=== PATIENT | male | born 1945 ===

== ENCOUNTER 2019-02-09 18:21 | Inpatient (IN) ==
[2019-02-09] MEDS ORDERED: ENOXAPARIN 100 MG/ML SYRINGE SUBCUT STA (18:36)
[2019-02-09] MEDS ORDERED: ASPIRIN 325 MG TABLET PO STA (18:36)
[2019-02-09] MEDS ORDERED: ONDANSETRON 4 MG/2 ML VIAL IV STA ×2 (18:36→19:27)
[2019-02-09] MEDS ORDERED: ONDANSETRON 4 MG/2 ML VIAL ONE (18:36)
[2019-02-09] MEDS ORDERED: ASPIRIN 300 MG SUPP RECTAL ONE (18:37)
[2019-02-09] MEDS ORDERED: EPTIFIBATIDE 20,000 MCG/10 ML VIAL IV STA (18:37)
[2019-02-09] MEDS ORDERED: HEPARIN 1,000 UNIT/1 ML VIAL IV STA (18:48)
[2019-02-09 18:50] LABS: Basophils % 0.5 % (0.0-0.8); Eosinophils # 0.1 10*3/uL (0.0-0.87); Eosinophils % 0.8 % (0.00-10.9); Hematocrit 48.9 VOL% (42.0-52.0); Immature Granulocytes % 0.1 %; Immature Granulocytes Absolute 0.01 #; Lymphocytes # 6.1 10*3/uL (1.4-4.0); Lymphocytes % 73.4 % (21.2-54.2); Mean Corpuscular HGB Conc 32.7 GM/DL (32-36); Mean Corpuscular Hemoglobin 30 PG (27-34); Mean Corpuscular Volume 92.8 FL (87-102); Monocytes # 0.6 10*3/uL (0.11-0.8); Monocytes % 6.7 % (1.7-12.7); Neutrophils # 1.5 10*3/uL (1.4-7.4); Neutrophils % 18.5 % (38.7-73.9); Platelet Count 221 T/CUMM (130-400); Red Blood Count 5.27 MC/CUMM (3.8-5.5); Red Cell Distribution Width 14.6 % (9.3-17.3); White Blood Count 8.2 T/CUMM (4-12)
[2019-02-09] MEDS ORDERED: ASPIRIN 300 MG SUPP RECTAL STA (18:56)
[2019-02-09 18:59] LABS: PT Patient Result 10.8 SECS
[2019-02-09] MEDS ORDERED: EPTIFIBATIDE 75 MG/100 ML BOTTLE IV SCH (19:00)
[2019-02-09] MEDS ORDERED: LIDOCAINE 1% 20 ML VIAL ONE (19:00)
[2019-02-09] MEDS ORDERED: fentaNYL 100 MCG/2 ML VIAL ONE (19:02)
[2019-02-09] MEDS ORDERED: MIDAZOLAM 2 MG/2 ML VIAL ONE (19:02)
[2019-02-09] MEDS ORDERED: TIROFIBAN 5,000 MCG/100 ML PREMIX IV ONE (19:07)
[2019-02-09 19:23] LABS: Albumin 3.6 G/DL (3.4-5.0); Bilirubin,Total 0.4 MG/DL (0.2-1.0); Calcium 8.9 MG/DL (8.5-10.1); Osmolality,Calculated 282.3 MOS/KG (273-304); Potassium 3.7 MMOL/L (3.5-5.1); Total Protein 7.7 G/DL (6.4-8.3)
[2019-02-09] MEDS ORDERED: HEPARIN 5,000 UNIT/1 ML VIAL ONE (19:31)
[2019-02-09] MEDS ORDERED: TICAGRELOR 90 MG TABLET ONE (20:02)
[2019-02-09] MEDS ORDERED: ASPIRIN 325 MG TABLET ONE (20:03)
[2019-02-09 20:06] LABS: Lymphocytes 80 % (20-55); Reactive Lymphocytes 1+; Segmented Neutrophils 12 % (50-85); Total Cells Counted 100
[2019-02-09 20:07] LABS: Macrocytosis Slight; Platelet Estimate Adequate
[2019-02-09] MEDS ORDERED: TIROFIBAN 5,000 MCG/100 ML PREMIX IV SCH (20:30)
[2019-02-09] MEDS ORDERED: ACETAMINOPHEN 325 MG TABLET PO PRN (20:44)
[2019-02-09] MEDS ORDERED: MAGNESIUM SULF RIDER 2 GM in PREMIX 1 EACH IV PRN (20:44)
[2019-02-09] MEDS ORDERED: fentaNYL 100 MCG/2 ML VIAL IV PRN (20:44)
[2019-02-09] MEDS ORDERED: ZALEPLON 5 MG CAPSULE PO PRN (20:44)
[2019-02-09] MEDS ORDERED: ONDANSETRON 4 MG/2 ML VIAL IV PRN (20:44)
[2019-02-09] MEDS ORDERED: MAGNESIUM SULF RIDER 4 GM in PREMIX 1 EACH IV PRN (20:44)
[2019-02-09] MEDS ORDERED: GLUCAGON 1 MG VIAL IM PRN (21:05)
[2019-02-09] MEDS ORDERED: DEXTROSE 50% 25 GM/50 ML SYRINGE IV PRN (21:05)
[2019-02-09] MEDS: SODIUM CHLORIDE 0.9% 1,000 ML IV SCH (21:15)
[2019-02-09 21:41] LABS: HIV Antigen/Antibody Result Nonreactive (Nonreactive)
[2019-02-09 21:45] LABS: Risk Ratio 2.93; Troponin I 0.092 NG/ML (0.00-0.045)
[2019-02-09 21:49] LABS: Hepatitis B Surface Ag Quant < 0.10 Index; Hepatitis B Surface Ag Result Negative (Negative); Hepatitis C Virus Ab Quant < 0.02 Index; Hepatitis C Virus Ab Result Negative (Negative)
[2019-02-09 22:13] LABS: Apearance,Urine CLEAR (Clear); Bilirubin,Urine Negative (Negative); Blood, Urine Negative (Negative); Glucose,Urine (UA) Negative (Negative); Ketones,Urine Negative (Negative); Mucus,Urine Occasional /LPF (Occasional); Nitrite,Urine Negative (Negative); Protein,Urine Negative; RBC,Urine 1 /HPF (0-4); Squamous Epithelial Cell,Urine Occasional /HPF (0-10); Urine Color Yellow (Yellow); Urine Specific Gravity 1.017 (1.001-1.035); Urine Urobilinogen < 2.0 EU/DL (0.2-1.0); WBC,Urine 1 /HPF (0-6)
[2019-02-09] MEDS: CARVEDILOL 3.125 MG TABLET PO SCH (23:02)
[2019-02-09] MEDS: GABAPENTIN 100 MG CAPSULE PO SCH (23:04)
[2019-02-09] MEDS: ACETAMINOPHEN 325 MG TABLET PO SCH (23:04)
[2019-02-09] MEDS: ROSUVASTATIN 10 MG TABLET PO SCH (23:05)
[2019-02-10] MEDS: TICAGRELOR 90 MG TABLET PO SCH ×3 (02:15→21:18)
[2019-02-10] MEDS: SODIUM CHLORIDE 0.9% 1,000 ML IV SCH (02:30)
[2019-02-10] MEDS: CARVEDILOL 3.125 MG TABLET PO SCH ×4 (04:30→21:17)
[2019-02-10 05:09] LABS: Basophils % 0.2 % (0.0-0.8); Eosinophils % 0.2 % (0.00-10.9); Hematocrit 41.3 VOL% (42.0-52.0); Hemoglobin 13.7 GM/DL (14.0-18.0); Immature Granulocytes % 0.3 %; Immature Granulocytes Absolute 0.03 #; Lymphocytes # 2.8 10*3/uL (1.4-4.0); Lymphocytes % 30.5 % (21.2-54.2); Mean Corpuscular HGB Conc 33.2 GM/DL (32-36); Mean Corpuscular Hemoglobin 30 PG (27-34); Mean Corpuscular Volume 91.8 FL (87-102); Mean Platelet Volume 10.8 FL (9.6-12.0); Monocytes # 0.7 10*3/uL (0.11-0.8); Neutrophils # 5.6 10*3/uL (1.4-7.4); Neutrophils % 60.8 % (38.7-73.9); Platelet Count 179 T/CUMM (130-400); Red Cell Distribution Width 14.7 % (9.3-17.3); White Blood Count 9.2 T/CUMM (4-12)
[2019-02-10 05:40] LABS: Albumin 2.9 G/DL (3.4-5.0); Bilirubin,Total 1.6 MG/DL (0.2-1.0); Osmolality,Calculated 283.1 MOS/KG (273-304); Potassium 4.1 MMOL/L (3.5-5.1)
[2019-02-10 05:52] LABS: Troponin I 31.6 NG/ML (0.00-0.045)
[2019-02-10] MEDS: INSULIN REGULAR 100 UNIT/ML SUBCUT SCH ×4 (07:57→21:27)
[2019-02-10] MEDS: ACETAMINOPHEN 325 MG TABLET PO SCH ×2 (08:20→21:18)
[2019-02-10] MEDS: GABAPENTIN 100 MG CAPSULE PO SCH ×3 (08:20→21:17)
[2019-02-10] MEDS: PANTOPRAZOLE 40 MG TABLET PO SCH (11:43)
[2019-02-10 14:19] LABS: Troponin I 15.3 NG/ML (0.00-0.045)
[2019-02-10] MEDS: TAMSULOSIN 0.4 MG CAPSULE PO SCH (17:03)
[2019-02-10] MEDS: traZODone 50 MG TABLET PO SCH (21:17)
[2019-02-10] MEDS: metFORMIN 500 MG TABLET PO SCH (21:18)
[2019-02-10] MEDS: ROSUVASTATIN 10 MG TABLET PO SCH (21:19)
[2019-02-11] MEDS: CARVEDILOL 3.125 MG TABLET PO SCH ×4 (04:09→20:59)
[2019-02-11 05:08] LABS: Basophils % 0.3 % (0.0-0.8); Eosinophils # 0.1 10*3/uL (0.0-0.87); Eosinophils % 0.7 % (0.00-10.9); Hematocrit 40.5 VOL% (42.0-52.0); Hemoglobin 13.4 GM/DL (14.0-18.0); Immature Granulocytes % 0.3 %; Immature Granulocytes Absolute 0.02 #; Lymphocytes # 3.2 10*3/uL (1.4-4.0); Lymphocytes % 42.1 % (21.2-54.2); Mean Corpuscular HGB Conc 33.1 GM/DL (32-36); Mean Corpuscular Hemoglobin 31 PG (27-34); Mean Corpuscular Volume 92.3 FL (87-102); Mean Platelet Volume 10.7 FL (9.6-12.0); Monocytes # 0.6 10*3/uL (0.11-0.8); Monocytes % 8.3 % (1.7-12.7); Neutrophils # 3.7 10*3/uL (1.4-7.4); Neutrophils % 48.3 % (38.7-73.9); Platelet Count 171 T/CUMM (130-400); Red Blood Count 4.39 MC/CUMM (3.8-5.5); Red Cell Distribution Width 14.9 % (9.3-17.3); White Blood Count 7.6 T/CUMM (4-12)
[2019-02-11 05:31] LABS: Albumin 2.8 G/DL (3.4-5.0); Bilirubin,Total 0.8 MG/DL (0.2-1.0); Calcium 8.2 MG/DL (8.5-10.1); Osmolality,Calculated 278.4 MOS/KG (273-304); Potassium 4.2 MMOL/L (3.5-5.1); Total Protein 6.2 G/DL (6.4-8.3)
[2019-02-11] MEDS: INSULIN REGULAR 100 UNIT/ML SUBCUT SCH ×4 (08:35→21:00)
[2019-02-11] MEDS: TICAGRELOR 90 MG TABLET PO SCH ×2 (08:54→21:00)
[2019-02-11] MEDS: FLUoxetine 20 MG CAPSULE PO SCH (08:54)
[2019-02-11] MEDS: GABAPENTIN 100 MG CAPSULE PO SCH ×3 (08:55→21:00)
[2019-02-11] MEDS: ACETAMINOPHEN 325 MG TABLET PO SCH ×2 (08:55→20:59)
[2019-02-11] MEDS: metFORMIN 500 MG TABLET PO SCH ×2 (08:55→20:59)
[2019-02-11] MEDS: CETIRIZINE 10 MG TABLET PO SCH (08:55)
[2019-02-11] MEDS: PANTOPRAZOLE 40 MG TABLET PO SCH (08:55)
[2019-02-11] MEDS: ASPIRIN CHEW 81 MG TABLET PO SCH (15:27)
[2019-02-11] MEDS: TAMSULOSIN 0.4 MG CAPSULE PO SCH (18:16)
[2019-02-11] MEDS: ROSUVASTATIN 10 MG TABLET PO SCH (20:59)
[2019-02-11] MEDS: traZODone 50 MG TABLET PO SCH (20:59)
[2019-02-12] MEDS: CARVEDILOL 3.125 MG TABLET PO SCH ×2 (04:05→08:50)
[2019-02-12 05:04] LABS: Basophils % 0.4 % (0.0-0.8); Eosinophils # 0.1 10*3/uL (0.0-0.87); Eosinophils % 1.3 % (0.00-10.9); Hematocrit 42.2 VOL% (42.0-52.0); Hemoglobin 13.8 GM/DL (14.0-18.0); Immature Granulocytes % 0.1 %; Immature Granulocytes Absolute 0.01 #; Lymphocytes # 2.7 10*3/uL (1.4-4.0); Mean Corpuscular HGB Conc 32.7 GM/DL (32-36); Mean Corpuscular Hemoglobin 31 PG (27-34); Mean Corpuscular Volume 93.4 FL (87-102); Mean Platelet Volume 10.2 FL (9.6-12.0); Monocytes # 0.6 10*3/uL (0.11-0.8); Monocytes % 8.5 % (1.7-12.7); Neutrophils # 3.3 10*3/uL (1.4-7.4); Neutrophils % 48.7 % (38.7-73.9); Platelet Count 166 T/CUMM (130-400); Red Blood Count 4.52 MC/CUMM (3.8-5.5); Red Cell Distribution Width 14.6 % (9.3-17.3); White Blood Count 6.7 T/CUMM (4-12)
[2019-02-12 05:34] LABS: Albumin 2.9 G/DL (3.4-5.0); Bilirubin,Total 1.3 MG/DL (0.2-1.0); Calcium 8.7 MG/DL (8.5-10.1); Osmolality,Calculated 282.3 MOS/KG (273-304); Potassium 4.2 MMOL/L (3.5-5.1); Total Protein 6.5 G/DL (6.4-8.3)
[2019-02-12 08:17] VITALS: BP 135/72
[2019-02-12] MEDS: INSULIN REGULAR 100 UNIT/ML SUBCUT SCH ×2 (08:49→12:25)
[2019-02-12] MEDS: CETIRIZINE 10 MG TABLET PO SCH (08:50)
[2019-02-12] MEDS: GABAPENTIN 100 MG CAPSULE PO SCH (08:50)
[2019-02-12] MEDS: PANTOPRAZOLE 40 MG TABLET PO SCH (08:50)
[2019-02-12] MEDS: TICAGRELOR 90 MG TABLET PO SCH (08:51)
[2019-02-12] MEDS: ACETAMINOPHEN 325 MG TABLET PO SCH (08:51)
[2019-02-12] MEDS: ASPIRIN CHEW 81 MG TABLET PO SCH (08:51)
[2019-02-12] MEDS: metFORMIN 500 MG TABLET PO SCH (08:51)
[2019-02-12] MEDS: FLUoxetine 20 MG CAPSULE PO SCH (08:51)
[2019-02-12] MEDS ORDERED: ATORVASTATIN 40 MG TABLET PO SCH (21:00)
== END 2019-02-12 12:50 | disposition home or self-care (01) | DRG 247 ==
LOC: N.ED 18:21 → N.ICU 18:58 → N.EDINP 19:04 → N.ICU 20:07 → N.TELEN 02-11 17:55
PROVIDERS: ADMIT Internal Medicine Cardiovascular Disease; ATTEND Internal Medicine Cardiovascular Disease
PROC: CLCCHCL (ICD-10-PCS; 2019-02-09 19:15)